=== PATIENT | female | born 1950 | race Caucasian/White ===

== ENCOUNTER → 2018-04-18 | Outpatient (CLI) | payer MEDICARE, OTHER ==
--- NOTE | 2018-04-22 20:24 | MAM ---
EXAM DESCRIPTION: 3D Screening BILATERAL : Digital Mammography. CLINICAL HISTORY: 68 years Female ANNUAL SCREENING . No complaints. No personal or family history of breast cancer. Childbirth. Postmenopausal. No HRT. Lifetime risk of developing breast cancer (Tyrer-Cuzick model)(%): 4.2. COMPARISON: Baseline study at this facility. TECHNIQUE: Bilateral CC and MLO projection full-field images, digital tomosynthesis mammographic technique. Bilateral digital 2-D full-field MLO images. CAD not available for tomosynthesis or 2-D images. FINDINGS: The breast parenchymal density pattern is: Scattered areas of fibroglandular density. No skin thickening or nipple retraction. Well-defined nodular densities in the bilateral breasts are most likely small intramammary lymph nodes. Bilateral vascular calcifications. Small region of architectural distortion approximately 5.5 cm from the nipple in the middle third of the breast at the 8:00 position. Not associated with microcalcifications. No focal, stellate mass or density, focal asymmetry , and no suspicious microcalcifications right breast. k IMPRESSION: BI-RADS CATEGORY: 0 - INCOMPLETE- Need additional imaging evaluation. FOLLOW-UP: Recall for additional imaging: Orthogonal left breast full-field tomosynthesis followed by targeted left breast ultrasound if indicated by diagnostic images.. Written communication concerning the IMPRESSION and Follow-up, will be mailed to the patient and referring health care provider. Electronically signed by: David Duenas MD 04/22/2018 8:21 PM [facility]
== END ==
LOC: MAMMO 10:30
PROVIDERS: ATTEND General Practice
DX: Z12.31 Encounter for screening mammogram for malignant neoplasm of breast (principal)

== ENCOUNTER → 2018-05-19 | Outpatient (CLI) | payer MEDICARE, OTHER ==
--- NOTE | 2018-05-20 20:41 | US ---
EXAM DESCRIPTION: Breast,Left: Ultrasound CLINICAL HISTORY: 68 yearsFemaleABNORMAL MAMMO COMPARISON: Diagnostic left breast tomosynthesis on the same visit. TECHNIQUE: Transcutaneous scanning of the left breast utilizing lawson-scale and Doppler modes. Scanning performed by the judo teacher and Dr. Duenas. FINDINGS: Scanning of the left breast from the 7:00 to the 10:00 sectors anterior. Mostly fatty echotexture. Small islands of fibroglandular tissues. At the distance 4 cm from the nipple, no dominant solid mass or distinct cyst. No parenchymal edema or large calcification. No overlying skin changes. Normal vascularity. IMPRESSION: 1. Bi-Rads Category 1: Negative. 2. Please refer to diagnostic left breast tomosynthesis examination and report on this visit. The FINDINGS and the FOLLOW-UP plan were reviewed in person with the patient after the examination. Written communication explaining the IMPRESSION and FOLLOW-UP will be mailed to the patient and referring care provider. Electronically signed by: David Duenas MD 05/20/2018 8:38 PM CDT
--- NOTE | 2018-05-21 09:08 | MAM ---
EXAM DESCRIPTION: 3D Diagnostic, Left: Digital Mammography CLINICAL HISTORY: 68 yearsFemaleABNORMAL MAMMO . No complaints. No personal or family history of breast cancer. Childbirth. Postmenopausal. No HRT. Lifetime risk of developing breast cancer (Tyrer-Cuzick model) percentage is 4.2. COMPARISON: Bilateral screening digital breast tomosynthesis 04/18/2018.. . TECHNIQUE: Left breast LM projection full-field images, digital mammographic tomosynthesis technique. CAD not available. FINDINGS: The breast parenchymal density pattern is: Scattered areas of fibroglandular density. No skin thickening or nipple retraction questionable area of focal asymmetry again noted in the central left breast near the posterior nipple line in the middle third. Ultrasound: Scanning of the left breast from the 7:00 to the 10:00 sectors anterior. Mostly fatty echotexture. Small islands of fibroglandular tissues. At the distance 4 cm from the nipple, no dominant solid mass or distinct cyst. No parenchymal edema or large calcification. No overlying skin changes. Normal vascularity. IMPRESSION: BI-RADS CATEGORY: 1 - NEGATIVE FOLLOW UP: Return to routine digital bilateral screening, one year interval from April 2018. The FINDINGS and the FOLLOW-UP plan were reviewed in person with the patient after the examination. Written communication explaining the IMPRESSION and FOLLOW-UP will be mailed to the patient and referring care provider. According to the [employer], yearly mammograms are recommended starting at age 40 and continuing as long as a woman is in good health. Any breast change noted on a breast self-exam should be reported promptly to the patient's healthcare provider. Breast MRI is recommended for women with an approximately 20-25% or greater lifetime risk of breast cancer, including women with a strong family history of breast or ovarian cancer and women who have been treated for Hodgkin's disease. A negative mammographic report should not delay tissue diagnosis in patients with significant clinical history or physical findings. Extremely dense breast tissue limits the sensitivity of digital mammography. Electronically signed by: David Duenas MD 05/21/2018 9:05 AM CDT
== END ==
LOC: MAMMO 12:41
PROVIDERS: ATTEND General Practice
DX: R92.2 Inconclusive mammogram (principal)
CPT/HCPCS: 76641; 77065; G0279

== ENCOUNTER → 2019-02-25 | Outpatient (CLI) | payer MEDICARE, OTHER ==
--- NOTE | 2019-02-26 12:25 | MRI ---
EXAM DESCRIPTION: Cervical Spine: MRI. CLINICAL HISTORY: 68 years Female RADICULOPATHY COMPARISON: None. TECHNIQUE: Multiplanar, high-field MRI, multiple sequences, non-contrast Cervical spine. FINDINGS: C5-C6: Disc desiccation with anterior bulging and endplate ridging. Minimal disc space loss. Left posterior 4 mm disc protrusion with minimal inferior extrusion impressing on the left ventral cord and the left C6 nerve. Moderate left neural foraminal narrowing. Left paracentral mild canal stenosis. Right neuroforamen patent. Mild hypertrophic arthrosis left facet. Hyperintense circumscribed T1 and T2 hemangioma inferior posterior C6 vertebral body. C6-C7: Minimal disc desiccation with disc space preserved. Tiny posterior disc bulge, more anterior bulge. Mild canal narrowing. Bilateral neural foramina are patent. Normal signal in the remaining discs with no bulging. Disc spaces preserved. Canal and neural foramina are patent. Facet joints are unremarkable Spinal alignment showing lack of normal cervical lordosis.. No cord compression or cord edema. Atlantoaxial joint unremarkable.. Base of the cerebellar tonsils is above the foramen magnum. Paravertebral soft tissues showing less than 1 cm nodule in the left lobe of the thyroid gland.. Vertebral bodies are not compressed at any level. Otherwise normal marrow signal in the remaining vertebral bodies and the posterior elements. IMPRESSION: 1. Left posterior 4 mm C5-C6 disc protrusion impressing on the left ventral cord and left C6 nerve. Correlate for left C6 radiculopathy. Left paracentral mild canal stenosis. 2. Tiny posterior C6-C7 disc bulge with minimal desiccation but disc space preserved. No canal or foraminal stenosis. Electronically signed by: David Duenas MD 02/26/2019 12:23 PM [facility]
== END ==
LOC: MRI 09:00
PROVIDERS: ATTEND General Practice
DX: M54.12 Radiculopathy, cervical region (principal); M50.222 Other cervical disc displacement at C5-C6 level; M50.923 Unspecified cervical disc disorder at C6-C7 level; M50.323 Other cervical disc degeneration at C6-C7 level; M48.02 Spinal stenosis, cervical region; G44.52 New daily persistent headache (NDPH)

== ENCOUNTER → 2019-02-27 | Outpatient (CLI) | payer MEDICARE, OTHER ==
--- NOTE | 2019-02-27 11:20 | MRI ---
EXAM DESCRIPTION: Brain w/oContrast CLINICAL HISTORY: FACIAL NUMBNESS COMPARISON: None available TECHNIQUE: Non contrast MRI of the brain is performed according to our usual protocol including multiplanar multi sequence technique. FINDINGS: Sagittal T1 images show intact corpus callosum. Normal pituitary gland with normal T1 appearance of the juaquin and medulla and upper cervical cord. Normal signal intensity within the clivus and calvarium. Axial T2 fat sat images reveal preservation of intracranial vascular flow voids. Normal lawson matter T2 signal intensity. Prominent ventricles and sulci consistent with age-related cerebral volume loss. The globes appear intact and symmetrical. No abnormal fluid signal in the paranasal sinuses, tympanic cavities or mastoid air cells. Axial flair images show multiple punctate foci of increased signal intensity involving subcortical and central white matter both cerebral hemispheres. 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 Diffusion weighted images are negative for focal intense increased signal intensity in the brain parenchyma to suggest restricted diffusion. ADC mapping is negative. Axial T1 images show normal lawson-white matter differentiation. No high signal intensity hemorrhagic lesion of the brain parenchyma. No subdural hematoma. Axial susceptibility weighted images are negative for focal signal loss to suggest abnormal brain parenchymal calcification or hemosiderin deposition. IMPRESSION: No acute intracranial pathologic process. Electronically signed by: Alex Sosa MD 02/27/2019 11:18 AM SOCIAL SCIENCES DEPARTMENT CHAIR
== END ==
LOC: MRI 10:00
PROVIDERS: ATTEND General Practice
DX: G44.52 New daily persistent headache (NDPH) (principal); G51.9 Disorder of facial nerve, unspecified

== ENCOUNTER → 2020-03-02 | Outpatient (CLI) | payer MEDICARE, OTHER ==
--- NOTE | 2020-03-02 13:42 | US ---
EXAM DESCRIPTION: Renal: Ultrasound. CLINICAL HISTORY: 69 years Female other specified disorders of kidney COMPARISON: None TECHNIQUE: Transcutaneous scanning: Two-dimensional and Doppler modes. FINDINGS: Right kidney measures 9.2 x 6.3 x 6.0 cm; volume 183.6 ml. Mid-renal cortical thickness 10 mm. . Increased cortical echogenicity less than the liver. No hydronephrosis No echogenic stones. Lobulated contour of the kidney with no perinephric fluid. Normal vascularity. Proximal ureter is not seen.. Left kidney measures 11.8 x 6.3 x 5.2 cm; volume 100 ml. Mid-renal cortical thickness 13 mm.. Normal cortical echogenicity. Question of a solid mass, hyperechoic to the cortex, posterior upper pole measuring 3.1 x 2.6 x 2.0 cm. No hydronephrosis. No echogenic stones. Except for mass, otherwise minimally lobulated contour of the kidney with no perinephric fluid. Normal vascularity.. Proximal ureter not seen. Urinary bladder was visualized. Prevoid volume 12.2 mL. Ureteral jet in the bladder right ureter only by color Doppler. Post void volume Abdominal aorta: Normal caliber from the proximal segment of the distal bifurcation. IMPRESSION: 1. Possible solid mass upper pole posterior cortex left kidney measuring 3.1 cm. Homogeneous. No cysts. Depending on renal function, consider follow-up CT scan or MRI scan without and with IV contrast. No echogenic stones or hydronephrosis. No perirenal fluid. 2. Heterogeneous increased echoes in the right kidney with thin cortex but no echogenic stones or hydronephrosis. No perirenal fluid. 3. Minimal urine in the bladder. Right intravesical ureteral jets seen by color Doppler. Normal caliber of the abdominal aorta. Electronically signed by: David Duenas MD 03/02/2020 1:41 PM CHANGE NUMBER OPERATOR
== END ==
LOC: US 09:40
PROVIDERS: ATTEND Emergency Medicine
DX: N28.89 Other specified disorders of kidney and ureter (principal); N28.9 Disorder of kidney and ureter, unspecified

== ENCOUNTER → 2020-03-24 | Outpatient (CLI) | payer MEDICARE, OTHER ==
--- NOTE | 2020-03-24 15:35 | CT ---
EXAM DESCRIPTION: Abdomen/Pelvis w/wo Contrast CLINICAL HISTORY: RENAL MASS COMPARISON: Ultrasound March 02, 2020 TECHNIQUE: Pre and postcontrast CT images of the abdomen and pelvis are obtained using standard imaging protocol. This exam was performed according to our departmental dose-optimization program, which includes automated exposure control, adjustment of the mA and/or kV according to patient size and/or use of iterative reconstruction technique . FINDINGS: Visualized lung bases are unremarkable. Liver is heterogeneous and decreased attenuation. No enhancing hepatic mass. Spleen, pancreas, and adrenal glands are unremarkable. Surgical clips from cholecystectomy. No biliary tract obstruction. Moderate to severe calcific atherosclerotic disease is seen. Stenosis of the distal abdominal aorta and common iliac arteries is seen. No nephrolithiasis. The right kidney is unremarkable. Solid enhancing mass of the mid to upper pole medial left kidney measures 3.0 x 2.7 x 3.0 cm The both kidneys show normal renal cortical enhancement. No filling defects are seen in the pelvicalyceal systems or ureters. Urinary bladder is poorly distended, but filled with contrast on delayed images. The uterus is atrophic and unremarkable. The ovaries are not identified. No abnormal adnexal mass. The appendix is normal. Stomach is poorly distended. No small bowel obstruction or bowel wall thickening. Left mid abdominal colostomy is seen with small fat-containing parastomal hernia. No significant diverticular disease. Stroud's pouch in the left mid pelvis. No pathologically enlarged abdominal or retroperitoneal lymphadenopathy is seen. Intramedullary erwin and gamma nail fixation of the proximal left femur is seen. The osseous structures are diffusely osteopenic. No aggressive bony lesions. Age-indeterminate compression fracture deformity of the superior plate of L2. Moderate spondylitic changes of the spine are seen. IMPRESSION: Solid enhancing mass in the medial mid to upper pole cortex of the left kidney is most consistent with renal cell carcinoma. Recommend urology consult. This corresponds to findings seen on ultrasound. Postsurgical changes from partial colon resection and colostomy in the left midabdomen. Diffuse fatty infiltration of the liver is seen. Severe calcific atherosclerotic disease with stenosis of the distal abdominal aorta and common iliac arteries. Electronically signed by: Meño Otoole MD 03/24/2020 3:33 PM LAUNDRY PRICING CLERK [id number]
--- NOTE | 2020-03-24 19:39 | US ---
EXAM DESCRIPTION: Carotid Duplex: ULTRASOUND. CLINICAL HISTORY: 70 years Female CAROTID ATHEROSCLEROSIS COMPARISON: None. TECHNIQUE: Transcutaneous scanning utilizing lawson-scale and Doppler modes to evaluate the bilateral carotid systems and vertebral arteries. Percentage of diameter of stenosis or no stenosis recorded will be based upon NASCET criteria. FINDINGS: Peak systolic/end diastolic velocities (CM-Sec) CCA Right 76/11 Left 52/11. ICA Right proximal 48/9, distal 68/11. Left proximal 59/10, mid 90/14. Vertebral Right 36/6 Left 39/0. ECA (PS Only) Right 88 left 191. ICA/CCA peak systolic velocity ratio: Right 0.9 Left 1.7 ICA/CCA end diastolic velocity ratio: Right 1.0 Left 1.3 Vertebral arteries: antegrade flow. Comments Comments: Bilateral echogenic focal plaque distal common carotid artery, common carotid bulb, and proximal ICA. Distal left common carotid artery was 60% area stenosis in 40% diameter stenosis. Proximal left ICA with 38% area stenosis and 45% diameter stenosis. Left mid below CCA with 22% area stenosis and 20% diameter stenosis. Spectral broadening in the bilateral proximal ICAs.. IMPRESSION: 1. Doppler evaluation of the bilateral carotid systems and vertebral arteries shows no hemodynamically significant stenoses (less than 70%). Grayscale imaging shows approximately 60% stenosis in the distal left common carotid artery. 2. No significant amount of plaque in the carotid arteries bilaterally. Bilateral vertebral arteries showed antegrade-cephalad flow. Electronically signed by: David Duenas MD 03/24/2020 7:37 PM HOB MACHINE OPERATOR
== END ==
LOC: CT 08:49
PROVIDERS: ATTEND Emergency Medicine
DX: Z01.812 Encounter for preprocedural laboratory examination (principal); N28.9 Disorder of kidney and ureter, unspecified; K76.0 Fatty (change of) liver, not elsewhere classified; I65.22 Occlusion and stenosis of left carotid artery; I70.0 Atherosclerosis of aorta; I70.8 Atherosclerosis of other arteries; Z90.49 Acquired absence of other specified parts of digestive tract; Z93.3 Colostomy status